=== PATIENT | female | born 1970 | race Caucasian/White ===

== ENCOUNTER → 2016-03-07 | Outpatient (CLI) | payer OTHER ==
[~2016-03-07] MED LIST: ALBU6.7H INH; BUSP10TA PO; BUSP15TA PO; CLIN1CAP5 PO; CLIN1CAP6 PO; DEPO150I IM; DIVA500T3 PO; FERR325T PO; IBUP800T23 PO; LEVA500T PO; LEVO-86 PO; REME45TA PO; RISP0.5T20 PO; SERT-129 PO; SUMA25TA2 PO
[2016-03-07 13:08] LABS: BICARBONATE 29.2 MEQ/L (21.0-32.0); POTASSIUM 4.4 MEQ/L (3.5-5.1)
== END ==
LOC: CLAB 12:19
PROVIDERS: ATTEND Physician Assistant Medical
DX: K42.9 Umbilical hernia without obstruction or gangrene (principal)
CPT/HCPCS: 36415; 80048

== ENCOUNTER → 2016-03-08 | Outpatient (CLI) | payer OTHER ==
[~2016-03-08] MED LIST changes: +IOHEXOL 350 MG/ML 10 ML VIAL (for RAD DIAG) IV ONE
--- NOTE | 2016-03-08 13:50 | RADRPT ---
EXAM DATE/TIME: 03/08/2016 13:27 [facility] COMPARISON: CHEST PA & LAT, October 17, 2011, 13:27. CT ABDOMEN & PELVIS W/O CONTRAST, Au 2010, 13:13. INDICATIONS : Umbilical hernia. IV CONTRAST: 70 cc Omnipaque 350 (iohexol) IV ORAL CONTRAST: Prescribed oral contrast ingested. RADIATION DOSE: 13.70 CTDIvol (mGy) MEDICAL HISTORY : Hernia, umbilical. SURGICAL HISTORY : None. ENCOUNTER: Initial ACUITY: 3 months PAIN SCALE: 6/10 LOCATION: Umbilical TECHNIQUE: Volumetric scanning of the abdomen and pelvis was performed. Using automated exposure control and adjustment of the mA and/or kV according to patient size, radiation dose was kept as low as reasonably achievable to obtain optimal diagnostic quality images. FINDINGS: LOWER LUNGS: There is a curvilinear area of increased parenchymal density identified within the r ight lung base at the junction of the right lower lobe and adjacent fissure. In the prior area of inf lammation is thought to represent scar. The remainder of the lung bases are clear. LIVER: Homogeneous density without lesion. There is no dilation of the biliary tree. No calcifi ed gallstones. SPLEEN: Normal size without lesion. PANCREAS: Within normal limits. KIDNEYS: Normal in size and shape. There is a small right-sided nonobstructing renal stone. No e vidence of concerning renal mass. ADRENAL GLANDS: Within normal limits. VASCULAR: There is no aortic aneurysm. BOWEL/MESENTERY: The stomach, small bowel, and colon demonstrate no acute abnormality. There is no free intraperitoneal air or fluid. ABDOMINAL WALL: There is a small fat containing umbilical hernia present just superior to this th ere is a focal area of diastases of the midline fascia with herniation of preperitoneal fat. The neck of this measures 1.3 cm transversely. This appearance is unchanged as compared to the prior exam. RETROPERITONEUM: There is no lymphadenopathy. BLADDER: No wall thickening or mass. REPRODUCTIVE: Within normal limits. INGUINAL: There is no lymphadenopathy or hernia. MUSCULOSKELETAL: Within normal limits for patient age. CONCLUSION: There is a small fat containing umbilical hernia present. Just superior to this there is a focal area of fat herniation through the midline with the neck measuring 1.3 cm in transverse d iameter. These findings are unchanged from prior exam. Lexi Cash MD on March 08, 2016 at 13:42 Board Certified Radiologist. This report was verified electronically.
== END ==
LOC: HRAD 11:36
PROVIDERS: ATTEND Family Medicine
DX: K42.9 Umbilical hernia without obstruction or gangrene (principal); R10.9 Unspecified abdominal pain
CPT/HCPCS: 74177; Q9967

== ENCOUNTER 2016-04-12 08:34 | Emergency (ER) | payer OTHER ==
[~2016-04-12] VITALS: Ht 162.6 cm; Wt 85.0 kg
[~2016-04-12 08:34] MED LIST changes: -BUSP15TA PO; -CLIN1CAP5 PO; -CLIN1CAP6 PO; -IBUP800T23 PO; -IOHEXOL 350 MG/ML 10 ML VIAL (for RAD DIAG) IV ONE; -RISP0.5T20 PO
[2016-04-12 08:36] VITALS: BP 132/78; PULSE 75; RESP 15; TEMP 97.8; O2SAT 96
[2016-04-12] MEDS ORDERED: RISP0.5T20 PO (10:47)
[2016-04-12] MEDS ORDERED: SODIUM CHLORIDE 0.9% FLUSH 5 ML FLUSH IVF PRN (11:15)
[2016-04-12 11:21] VITALS: BP_SYST 154; BP_DIAS 78; BP_DIAS 86; RESP 18; O2SAT 99
--- NOTE | 2016-04-12 11:36 | PD ---
HPI Chief Complaint: Skin Problem Time Seen by Provider: 10:39 Travel History International Travel<30 days: No Contact w/Intl Traveler<30days: No Traveled to known affect area: No History of Present Illness HPI Patient is a 45-year-old female presents emergency Department with right breast swelling and pain. Patient states that started this morning noticed a small pimple just to the left of her right nipple. Patient states she's never had a problem with her breast before. No known family history of breast cancer, no personal history of breast cancer. Patient does have a history of being a recovering addict and does not use some time. PFSH Past Medical History Anemia: Yes Autoimmune Disease: No Anxiety: Yes Depression: Yes Diminished Hearing: No GERD: Yes Headaches: Yes Psychiatric: Yes Immunizations Current: No Thyroid Disease: Yes ?: Not LMP: MAR 2016 Past Surgical History Surgical History: No Previous Surgery Social History Alcohol Use: No Tobacco Use: Yes (1PPD) Substance Use: No (recovering addict ) Allergies-Medications (Allergen,Severity, Reaction): Coded Allergies: Compazine (Verified Allergy, Severe, HIVES,TONGUE SWELLS, 04/12/16) Penicillin (Verified Allergy, Severe, HIVES,TONGUE SWELLS, 04/12/16) Aspirin (Verified Adverse Reaction, Intermediate, UPSET STOMACH, 04/12/16) *MDRO Multi-Drug Resistant Organism (Verified Adverse Reaction, Unknown, ) MRSA (finger wound) - 11/2002 MRSA PCR negative 03/21/2015 Uncoded Allergies: NITROUS OXIDE (Adverse Reaction, Intermediate, HIVES, 03/06/13) Reported Meds & Prescriptions Reported Meds & Active Scripts Active Clindamycin (Clindamycin HCl) 150 Mg Cap 300 Mg PO Q6H 7 Days Sumatriptan (Sumatriptan Succinate) 25 Mg Tab 50 Mg PO BID PRN If a satisfactory response has not been obtained at 2 hours, a second dose may be administered Synthroid (Levothyroxine Sodium) 137 Mcg Tab 137 Mcg PO DAILY Proventil Hfa 6.7 GM Inh (Albuterol Sulfate) 90 Mcg/Act Aer 2 Puff INH Q4-6H PRN Reported Risperdal (Risperidone) 0.5 Mg Tab 0.5 Mg PO Q12HR Buspirone (Buspirone HCl) 10 Mg Tab 10 Mg PO TID Sertraline (Sertraline HCl) 100 Mg Tab 150 Mg PO DAILY Remeron (Mirtazapine) 45 Mg Tab 45 Mg PO HS Divalproex ER (Divalproex Sodium) 500 Mg Tab 1,000 Mg PO HS Divalproex ER (Divalproex Sodium) 500 Mg Tab 500 Mg PO DAILY Depo-Provera Inj (Medroxyprogesterone Inj) 150 Mg/Ml Inj 150 Mg IM Q90D Review of Systems Except as stated in HPI: all other systems reviewed are Neg Physical Exam Narrative GENERAL: Well-developed well-nourished no apparent distress. SKIN: Warm and dry. HEAD: Atraumatic. Normocephalic. EYES: Pupils equal and round. No scleral icterus. No injection or drainage. ENT: No nasal bleeding or discharge. Mucous membranes pink and moist. NECK: Trachea midline. No JVD. BREAST: right: There is a small pustule just removed from the nipple in the 3 o 'clock position. There is induration approximately one centimeters in diameter associated with this lesion. There is no skin dimpling, no nipple changes. Minimal surrounding erythema extending approximately 2 cm from the pustule. No other masses no lymphadenopathy. Left: Nipple normal, no lymphadenopathy no masses. CARDIOVASCULAR: Regular rate and rhythm. No murmur appreciated. RESPIRATORY: No accessory muscle use. Clear to auscultation. Breath sounds equal bilaterally. GASTROINTESTINAL: Abdomen soft, non-tender, nondistended. Hepatic and splenic margins not palpable. MUSCULOSKELETAL: No obvious deformities. No clubbing. No cyanosis. No edema. NEUROLOGICAL: Awake and alert. No obvious cranial nerve deficits. Motor grossly within normal limits. Normal speech. PSYCHIATRIC: Appropriate mood and affect; insight and judgment normal. Data Data Last Documented VS Vital Signs Date Time Temp Pulse Resp B/P Pulse Ox O2 Delivery O2 Flow Rate FiO2 04/12/16 11:21 18 99 Room Air 04/12/16 11:21 154/78 154/86 04/12/16 08:36 97.8 75 Orders Basic Metabolic Panel (Bmp) (04/12/16 11:01) Complete Blood Count With Diff (04/12/16 11:01) Ecg Monitoring (04/12/16 11:01) Bilateral Bp Monitoring (04/12/16 11:01) Iv Access Insert/Monitor (04/12/16 11:01) Oximetry (04/12/16 11:01) Oxygen Administration (04/12/16 11:01) Sodium Chloride 0.9% Flush (Ns Flush) (04/12/16 11:15) Us Breast Unilateral (04/12/16 ) Ibuprofen (Motrin) (04/12/16 13:00) Clindamycin Inj (Cleocin Inj) (04/12/16 12:45) Labs Laboratory Tests Test 04/12/16 12:00 White Blood Count 8.3 TH/MM3 Red Blood Count 4.39 MIL/MM3 Hemoglobin 13.0 GM/DL Hematocrit 38.2 % Mean Corpuscular Volume 87.0 FL Mean Corpuscular Hemoglobin 29.6 PG Mean Corpuscular Hemoglobin 34.0 % Concent Red Cell Distribution Width 14.3 % Platelet Count 262 TH/MM3 Mean Platelet Volume 8.4 FL Neutrophils (%) (Auto) 52.5 % Lymphocytes (%) (Auto) 35.5 % Monocytes (%) (Auto) 10.3 % Eosinophils (%) (Auto) 1.3 % Basophils (%) (Auto) 0.4 % Neutrophils # (Auto) 4.3 TH/MM3 Lymphocytes # (Auto) 2.9 TH/MM3 Monocytes # (Auto) 0.9 TH/MM3 Eosinophils # (Auto) 0.1 TH/MM3 Basophils # (Auto) 0.0 TH/MM3 CBC Comment DIFF FINAL Differential Comment Sodium Level 136 MEQ/L Potassium Level 4.3 MEQ/L Chloride Level 102 MEQ/L Carbon Dioxide Level 28.2 MEQ/L Anion Gap 6 MEQ/L Blood Urea Nitrogen 13 MG/DL Creatinine 0.81 MG/DL Estimat Glomerular Filtration 76 ML/MIN Rate Random Glucose 83 MG/DL Calcium Level 9.2 MG/DL [facility] Medical Decision Making Medical Screen Exam Complete: Yes Emergency Medical Condition: Yes Differential Diagnosis Breast cancer, breast abscess, mastitis unlikely, Narrative Course Patient roomed in the emergency department, she appears well and nontoxic. She was given clindamycin in the emergency department. Last 24 hours Impressions Breast Ultrasound 04/12/16 0000 Signed Impressions: Service Date/Time: Tuesday, April 12, 2016 11:41 - CONCLUSION: Hypoechoic masslike area which is nonspecific. This could represent infection or early abscess however there is no fluid. Solid masses tumors are also a consideration. This study does not exclude breast cancer and the findings should be correlated with mammography. Syd Bhakta MD Patient has not had a mammogram in over 5 years. Patient will be discharged on clindamycin she is stable to be discharged at this time. Labs reviewed and she has no Sirs criteria. There is no drainable fluid from her abscess/mass. Patient was discussed with Dr. Blackburn who is unfortunately not accepting new patients at this time. Patient was discussed with Dr. Huddleston who is willing to assist patient and her workup for possible breast cancer. Importance of close follow-up was discussed with the patient and recommended that she also contact her primary care physician to set up further workup at her earliest convenience. I also discussed the differential diagnosis the patient and the gravity of this differential diagnosis. Diagnosis Primary Impression: Breast mass Additional Impression: Breast mass in female Referrals: Nae Land MD Additional Instructions: Follow-up with your primary care provider by phone today, Med/Other Pt SpecificInfo: Prescription(s) given Scripts Clindamycin 150 Mg [id number] Mg PO Q6H 7 Days Ref 0 Prov:Huseyin Castañeda MD 04/12/16 Disposition: 01 DISCHARGE HOME Condition: Stable Huseyin Castañeda MD Apr 12, 2016 11:36
[2016-04-12 12:18] LABS: AUTOMATED NEUTROPHIL # 4.3 TH/MM3 (1.8-7.7); BASOPHIL % 0.4 % (0.0-2.0); EOSINOPHIL # 0.1 TH/MM3 (0-0.4); EOSINOPHIL % 1.3 % (0.0-4.0); HEMATOCRIT 38.2 % (35.0-46.0); HEMO FLAGS DIFF FINAL; LYMPH % 35.5 % (9.0-44.0); LYMPHOCYTE # 2.9 TH/MM3 (1.0-4.8); MEAN CORPUSCULAR HEMOGLOBIN 29.6 PG (27.0-34.0); MONO % 10.3 % (0.0-8.0); NEUT % 52.5 % (16.0-70.0); PLATELET COUNT 262 TH/MM3 (150-450); RED BLOOD COUNT 4.39 MIL/MM3 (4.00-5.30); RED CELL DISTRIBUTION WIDTH 14.3 % (11.6-17.2); WHITE BLOOD COUNT 8.3 TH/MM3 (4.0-11.0)
--- NOTE | 2016-04-12 12:22 | RADRPT ---
EXAM DATE/TIME: 04/12/2016 11:41 [facility] COMPARISON: No previous studies available for comparison. INDICATIONS : Right breast abscess. MEDICAL HISTORY : Gastroesophageal reflux disease. Hypothyroidism. Headache. Bipolar. MRSA left thumb. Anemia. Umbili zaid hernia. SURGICAL HISTORY : None. ENCOUNTER: Initial ACUITY: 1 day PAIN SCORE: 10/10 LOCATION: Right breast. FINDINGS: A targeted right breast ultrasound study was performed in the area of concern demonstrates an ill-def ined hypoechoic masslike area in the retroareolar region. This measures up to at least 1.3 x 1 x 1.4 cm in diameter and demonstrates increased surrounding color flow. CONCLUSION: Hypoechoic masslike area which is nonspecific. This could represent infection or fritz y abscess however there is no fluid. Solid masses tumors are also a consideration. This study does no t exclude breast cancer and the findings should be correlated with mammography. Syd Bhakta MD on April 12, 2016 at 12:16 Board Certified Radiologist. This report was verified electronically.
[2016-04-12 12:35] LABS: BICARBONATE 28.2 MEQ/L (21.0-32.0); POTASSIUM 4.3 MEQ/L (3.5-5.1)
[2016-04-12] MEDS ORDERED: CLINDAMYCIN INJ 900 MG in SODIUM CHLORIDE 0.9% INJ 100 ML IV ONE (12:45)
[2016-04-12] MEDS ORDERED: IBUPROFEN 600 MG TAB PO ONE (13:00)
[2016-04-12] MEDS ORDERED: CLIN1CAP5 PO (13:03)
[2016-04-23] MEDS ORDERED: CLIN1CAP6 PO ×2 (09:15→16:33)
[2016-04-25] MEDS ORDERED: IBUP800T23 PO (09:12)
== END 2016-04-12 13:58 | disposition home or self-care (01) ==
LOC: NEPE 08:34
DX: N63 Unspecified lump in breast (principal)
CPT/HCPCS: 76642; 80048; 85025; 96374

== ENCOUNTER 2016-12-26 13:54 | Emergency (ER) | payer SELFPAY ==
[~2016-12-26] VITALS: Ht 162.6 cm; Wt 102.0 kg
[~2016-12-26 13:54] MED LIST changes: +CLIN300C5 PO; -FERR325T PO; +IBUP1TAB7 PO; -LEVA500T PO; +RISP0.5T25 PO
[2016-12-26 13:56] VITALS: BP 127/84; PULSE 93; RESP 12; TEMP 98.4; O2SAT 95
[2016-12-26] MEDS ORDERED: BACT800T5 PO (15:42)
--- NOTE | 2016-12-26 15:43 | PD ---
HPI . Left hand pain Chief Complaint: Skin Problem Time Seen by Provider: 15:22 Travel History International Travel<30 days: No Contact w/Intl Traveler<30days: No Traveled to known affect area: No History of Present Illness HPI 46 year old female presents emergency department for evaluation of pain, swelling and erythema to the palmar aspect of the left hand. Patient states she was bitten by bugs while she slept at a friend's house when she woke up with left hand redness and pain. She denies any injuries, traumas or falls. The redness and swelling are localized to the distal portion of the third and fourth digit of the left hand and the palmar aspect proximal to the fifth digit. Patient denies any fevers, chills, chest pain, malaise, shortness breath , abdominal pain, nausea, vomiting, diarrhea. Patient only major medical history is hypertension and hypothyroidism. PFSH Past Medical History Anemia: Yes Autoimmune Disease: No Anxiety: Yes Depression: Yes Diminished Hearing: No GERD: Yes Headaches: Yes Psychiatric: Yes Immunizations Current: No Thyroid Disease: Yes ?: Not Social History Alcohol Use: No Tobacco Use: Yes (1PPD) Substance Use: No (recovering addict ) Allergies-Medications (Allergen,Severity, Reaction): Coded Allergies: penicillin G (Unverified Allergy, Severe, HIVES,TONGUE SWELLS, 12/26/16) prochlorperazine (Unverified Allergy, Severe, HIVES,TONGUE SWELLS, 12/26/16 ) aspirin (Unverified Adverse Reaction, Intermediate, UPSET STOMACH, 12/26/16 ) *MDRO Multi-Drug Resistant Organism (Verified Adverse Reaction, Unknown, 12/26/16) MRSA (finger wound) - 11/2002 MRSA PCR negative 03/21/2015 Uncoded Allergies: NITROUS OXIDE (Adverse Reaction, Intermediate, HIVES, 03/06/13) Reported Meds & Prescriptions Reported Meds & Active Scripts Active Ibuprofen 800 Mg Tab 800 Mg PO Q8H PRN Clindamycin (Clindamycin HCl) 300 Mg Cap 300 Mg PO TID Sumatriptan (Sumatriptan Succinate) 25 Mg Tab 50 Mg PO BID PRN If a satisfactory response has not been obtained at 2 hours, a second dose may be administered Synthroid (Levothyroxine Sodium) 137 Mcg Tab 137 Mcg PO DAILY Proventil Hfa 6.7 GM Inh (Albuterol Sulfate) 90 Mcg/Act Aer 2 Puff INH Q4-6H PRN Reported Risperdal (Risperidone) 0.5 Mg Tab 0.5 Mg PO Q12HR Buspirone (Buspirone HCl) 10 Mg Tab 10 Mg PO TID Sertraline (Sertraline HCl) 100 Mg Tab 150 Mg PO DAILY Remeron (Mirtazapine) 45 Mg Tab 45 Mg PO HS Divalproex ER (Divalproex Sodium) 500 Mg Tab 1,000 Mg PO HS Divalproex ER (Divalproex Sodium) 500 Mg Tab 500 Mg PO DAILY Depo-Provera Inj (Medroxyprogesterone Inj) 150 Mg/Ml Inj 150 Mg IM Q90D Review of Systems Except as stated in HPI: all other systems reviewed are Neg Physical Exam Narrative GENERAL: Well-nourished, well-developed 46 year female patient in no acute distress. Nontoxic appearing. SKIN: Mild erythema and edema noted to the palmar aspect of the left hand proximal to the fifth digit and the distal portion of the third and fourth digit. HEAD: Normocephalic. Atraumatic. EYES: No scleral icterus. No injection or drainage. NECK: Supple, trachea midline. No JVD or lymphadenopathy. CARDIOVASCULAR: Regular rate and rhythm without murmurs, gallops, or rubs. Radial pulses +2 bilaterally. RESPIRATORY: Breath sounds equal bilaterally. No accessory muscle use. GASTROINTESTINAL: Abdomen soft, non-tender, nondistended. MUSCULOSKELETAL: Full range of motion in the left hand. No obvious deformity, ecchymosis, or cyanosis. BACK: Nontender without obvious deformity. No CVA tenderness. Data Data Last Documented VS Vital Signs Date Time Temp Pulse Resp B/P (MAP) Pulse Ox O2 Delivery O2 Flow Rate FiO2 12/26/16 13:56 98.4 93 12 127/84 (98) 95 MDM Medical Decision Making Medical Screen Exam Complete: Yes Emergency Medical Condition: Yes Differential Diagnosis Differential diagnoses include but not limited to cellulitis, abscess, infected bug bite Narrative Course 46 year old female presents emergency department for evaluation of mild edema and erythema noted to the palmar aspect of the left hand. Patient states she was bitten by a bug while she slept at a friend's house. Patient has full range of motion of the left hand but the area of erythema and edema is tender to the touch. Patient denies any fevers, chills, malaise. Patient only major medical history is hypertension and hypothyroidism. Patient will be treated for cellulitis with Bactrim and discharged home with instructions to follow-up with primary care or return to the emergency Department with any worsening condition. Diagnosis Primary Impression: Cellulitis Qualified Codes: L03.114 - Cellulitis of left upper limb Referrals: Primary Care Physician Patient Instructions: Cellulitis (DC), General Instructions Additional Instructions: Please return to emergency department if your symptoms return or worsen. Follow up with your primary care provider. Take full course of Bactrim as prescribed. May take ibuprofen as needed for pain or swelling. May use ice as needed for pain or swelling. Med/Other Pt SpecificInfo: Prescription(s) given Scripts Sulfamethoxazole-Trimethoprim (Bactrim DS) 800-160 Mg Tab 1 TAB PO BID for Infection for 10 Days, #20 TAB 0 Refills Prov: Marilynn Saleh 12/26/16 Disposition: DISCHARGE HOME Condition: Stable Marilynn Saleh Dec 26, 2016 15:43
== END 2016-12-26 15:45 | disposition home or self-care (01) ==
LOC: NEPK 13:54
DX: L03.114 Cellulitis of left upper limb (principal); D64.9 Anemia, unspecified; I10 Essential (primary) hypertension; E03.9 Hypothyroidism, unspecified; Z72.0 Tobacco use
CPT/HCPCS: 99283